=== PATIENT | female | born 1990 | race African-American/Black ===

== ENCOUNTER 2020-12-20 18:27 | Emergency (ER) | payer OTHER ==
[~2020-12-20] VITALS: Ht 157.5 cm; Wt 56.8 kg
[2020-12-20 18:38] VITALS: BP 137/87; Ht 157.5 cm; Wt 56.8 kg
[2020-12-20] MEDS ORDERED: TOPAMAX50 MG PO (18:42)
== END 2020-12-20 19:05 | disposition home or self-care (01) ==
LOC: D.ER 18:27
DX: S00.93XA Contusion of unspecified part of head, initial encounter (principal); W01.0XXA Fall on same level from slipping, tripping and stumbling without subsequent striking against object, initial encounter; Y92.009 Unspecified place in unspecified non-institutional (private) residence as the place of occurrence of the external cause

== ENCOUNTER 2021-04-07 21:43 | Emergency (ER) | payer OTHER, MEDICAID ==
[~2021-04-07] VITALS: Ht 157.5 cm; Wt 67.1 kg
[~2021-04-07 21:43] MED LIST: TOPAMAX50 MG PO
[2021-04-07 22:26] VITALS: Ht 157.5 cm; Wt 67.1 kg
[2021-04-07 22:59] VITALS: BP 140/97
[2021-04-07 23:32] LABS: BASOPHILS 0.4 % (0-2); EOSINOPHILS 2.3 % (0-7); HEMATOCRIT 38.7 % (36.0-48.0); HEMOGLOBIN 13.3 g/dL (12-16); LYMPHOCYTES 24.3 % (15-50); MCH 31.9 pg (26.0-34.0); MCHC 34.2 g/dL (31.0-37.0); MCV 93.1 fL (80.0-100.0); MEAN PLATELET VOLUME 8.5 fL (7.4-10.4); MONOCYTES 8.8 % (2-11); NEUTROPHILS 64.2 % (40-80); PLATELET COUNT 234 10x3/uL (130-400); RBC 4.16 10x6/uL (4.00-5.40); RDW 13.2 % (11.5-14.5)
[2021-04-07 23:38] LABS: CALCIUM 8.9 mg/dL (8.5-10.1); CARBON DIOXIDE 27.7 mmol/L (21.0-32.0); CREATININE - SERUM 1.3 mg/dL (0.6-1.3); POTASSIUM - SERUM 3.7 mmol/L (3.5-5.1)
[2021-04-07 23:48] LABS: HCG URINE NEGATIVE (NEGATIVE)
[2021-04-07 23:52] LABS: BILIRUBIN NEGATIVE (NEGATIVE); KETONE NEGATIVE mg/dL (< 1+); NITRITE NEGATIVE (NEGATIVE); PH 7.5 (5.0-8.0); SQUAMOUS EPITHELIAL 2 HPF (0-4); UROBILINOGEN NORMAL mg/dL (< 2); WHITE CELLS - URINE <1 HPF (0-4)
[2021-04-07 23:53] LABS: ALBUMIN 4.3 g/dL (3.4-5.0); BILIRUBIN - TOTAL 0.18 mg/dL (0.2-1.3); PROTEIN - SERUM 8.2 g/dL (6.4-8.2)
== END 2021-04-08 01:22 | disposition home or self-care (01) ==
LOC: D.ER 21:43
PROVIDERS: Family Medicine
DX: K59.00 Constipation, unspecified (principal); R10.9 Unspecified abdominal pain